=== PATIENT | male | born 1940 | race Caucasian/White ===

== ENCOUNTER 2016-12-15 08:32 | Day surgery (SDC) | payer MEDICARE, OTHER ==
[~2016-12-15] VITALS: Ht 182.9 cm; Wt 81.0 kg
[~2016-12-15 08:32] MED LIST: AMOXICILLIN500 M PO; BABY ASPIRIN81 MG PO; BAL B-501 EACH PO; BETAPACE80 M1 PO; BETAPACE80 M2 PO; CALCIUM 600 +1 EAC5 PO; CALCIUM CITRATE1 TA PO; COUMADIN5 M2 PO; COUMADIN5 MG PO; LAMICTAL200 M2 PO; LAMICTAL200 MG PO; LEVOFLOXACIN500 M1 PO; LEVOTHYROXINE100 MC1 PO; LISINOPRIL2.5 MG PO; MIRTAZAPINE7.5 M1 PO; MULTIVITAMIN1 TAB PO; OMEPRAZOLE40 MG PO; PREDNISOLONE AC15 ML LEFT EYE; PREDNISOLONE AC15 ML RIGHT EYE; PRINIVIL5 M1 PO; REMERON15 M1 PO; SYNTHROID100 MCG PO; VITAMIN D2000 UNI1 PO; VITAMIN D35000 UNI3 PO; VITAMIN D50000 UNIT PO; ZOFRAN ODT4 MG/UDTAB PO; ZOLOFT50 MG PO; [UNRECOGNIZED DRUG - OTHER] PO
[2016-12-15 10:05] LABS: INR 1.1 INR (0.9-1.1); PROTHROMBIN TIME 12.8 SECONDS (9.0-13.6)
[2016-12-17] MEDS ORDERED: NORCO 5-325 TA1 EACH PO (00:01)
== END 2016-12-15 16:25 ==
LOC: SRG 08:32 → SHSC 08:32 → ORW 11:38 → PACU 12:12 → SHSC 13:05 → SRG 16:25
PROVIDERS: Anesthesiology
PROC: 0YU54JZ Supplement Right Inguinal Region with Synthetic Substitute, Percutaneous Endoscopic Approach (ICD-10-PCS; principal; 2016-12-15)
DX: K40.90 Unilateral inguinal hernia, without obstruction or gangrene, not specified as recurrent (principal); E03.9 Hypothyroidism, unspecified; F32.9 Major depressive disorder, single episode, unspecified; I48.91 Unspecified atrial fibrillation; Z88.8 Allergy status to other drugs, medicaments and biological substances; Z90.49 Acquired absence of other specified parts of digestive tract; Z79.899 Other long term (current) drug therapy; Z79.01 Long term (current) use of anticoagulants; Z95.0 Presence of cardiac pacemaker; Z98.890 Other specified postprocedural states
CPT/HCPCS: C1781; J0690; J3010

== ENCOUNTER 2016-12-17 23:46 | Observation (INO) | payer MEDICARE, OTHER ==
[~2016-12-17] VITALS: Ht 182.9 cm; Wt 81.3 kg
[~2016-12-17 23:46] MED LIST changes: +NORCO 5-325 TA1 EACH PO
[2016-12-18 01:18] LABS: BASO % 0.4 % (0-2); BASO ABSOLUTE COUNT 0.1 tho/cmm (0.0-0.2); EOS % 3.2 % (0-7); EOSINOPHIL ABSOLUTE COUNT 0.4 tho/cmm (0.0-0.7); HCT-HEMATOCRIT 39.6 % (36.0-53.5); HGB-HEMOGLOBIN 13.4 gm/dl (13.5-17.0); IMMATURE GRANULOCYTES ABSOLUTE 0.03 tho/cmm (0-0.03); IMMATURE GRANULOCYTES PERCENT 0.2 % (0-0.3); LYMPH ABSOLUTE COUNT 2.3 tho/cmm (0.8-4.5); MCH (MEAN CORPUSCULAR HGB) 29.6 pg (28.0-32.0); MCHC MEAN CORPUSCULAR HGB CONC 33.8 % (32.0-36.0); MCV (MEAN CELL VOLUME) 87.4 fl (82.0-96.0); MEAN PLATELET VOLUME 9.5 cmc (9.4-12.4); MONO % 13.3 % (0-12); MONOCYTE ABSOLUTE COUNT 1.6 tho/cmm (0.0-1.2); NEUTROPHIL ABSOLUTE COUNT 7.8 tho/cmm (1.6-8.0); NEUTROPHIL-AUTOMATED 7.8 tho/cmm (1.6-8.0); NEUTROPHILS % 63.9 % (40-80); PLATELET COUNT 288 tho/cmm (150-450); RED BLOOD COUNT 4.53 mil/cmm (4.40-5.70); RED CELL DISTRIBUTION WIDTH 14.5 % (12.4-16.4); WHITE BLOOD COUNT 12.1 tho/cmm (4.0-10.0)
[2016-12-18 01:23] LABS: INR 1.1 INR (0.9-1.1); PROTHROMBIN TIME 13.5 SECONDS (9.0-13.6)
[2016-12-18 01:33] LABS: ALB/GLOB RATIO 0.9 (0.8-2.0); ALBUMIN 3.1 g/dl (3.5-5.0); ALKALINE PHOSPHATASE 64 U/L (33-138); ALT/SGPT 20 U/L (12-78); AMYLASE 63 U/L (20-90); ANION GAP 11 mmol/L (0-20); AST/SGOT 19 U/L (10-40); BILIRUBIN,TOTAL 0.6 mg/dl (0.0-1.5); BLOOD UREA NITROGEN 39 mg/dl (6-24); CALCIUM 8.8 mg/dl (8.5-10.5); CARBON DIOXIDE-VENOUS 26 mmol/L (22-32); CHLORIDE 105 mmol/l (96-110); CREATININE 4.82 mg/dl (0.60-1.30); GLUCOSE 94 mg/dL (70-110); LIPASE 127 U/L (73-393); POTASSIUM 3.9 mmol/L (3.7-5.1); SODIUM 138 mmol/L (135-145); eGFR VALUE FOR BLACK 13 mL/Min
[2016-12-18 10:09] LABS: ANION GAP 8 mmol/L (0-20); BLOOD UREA NITROGEN 28 mg/dl (6-24); CALCIUM 8.8 mg/dl (8.5-10.5); CARBON DIOXIDE-VENOUS 31 mmol/L (22-32); CHLORIDE 108 mmol/l (96-110); GLUCOSE 106 mg/dL (70-110); POTASSIUM 3.8 mmol/L (3.7-5.1); SODIUM 143 mmol/L (135-145); eGFR VALUE FOR BLACK 28 mL/Min
[2016-12-18 10:12] LABS: CREATININE 2.44 mg/dl (0.60-1.30)
[2016-12-18 10:56] LABS: URINE SODIUM-RANDOM 80 mmol/L (20-110)
--- NOTE | 2016-12-18 15:13 | NUR ---
VIRTUAL CARE NOTE: PT AWAKE, RESTING IN BED, STATES HE IS FEELING BETTER TODAY. PLATA IN PLACE DRAINING CLEAR YELLOW URINE. PT STATES HE DID HAVE LARGE SOFT BM TODAY. CHART REVIEWED. PT DENIES QUESTIONS/CONCERNS AT THIS TIME. VN WILL CONTINUE TO MONITOR ELECTRONIC RECORD AND FOLLOW W/ PT.
--- NOTE | 2016-12-18 23:41 | NUR ---
VIRTUAL CARE NOTE: ASSESSMENT DEFERRED. PT. SLEEPING.
[2016-12-19 05:41] LABS: URINE BILIRUBIN NEGATIVE (NEG); URINE BLOOD MODERATE (NEG); URINE GLUCOSE (UA) NEGATIVE (NEG); URINE KETONE NEGATIVE (NEG); URINE LEUKOCYTE ESTERASE NEGATIVE (NEG); URINE NITRITE NEGATIVE (NEG); URINE PH 6.5 (5.0-8.0); URINE PROTEIN SMALL (NEG)
[2016-12-19 05:42] LABS: URINE COLOR YELLOW
[2016-12-19 05:43] LABS: URINE APPEARANCE CLEAR
[2016-12-19 05:48] LABS: URINE EPITHELIAL CELLS 0 /[HPF] (0-10); URINE RBC 0-3 /[HPF] (0-5); URINE WBC 0-2 /[HPF] (0-5)
[2016-12-19 06:00] LABS: INR 1.2 INR (0.9-1.1); PROTHROMBIN TIME 14.6 SECONDS (9.0-13.6)
[2016-12-19 06:08] LABS: ANION GAP 8 mmol/L (0-20); BLOOD UREA NITROGEN 22 mg/dl (6-24); CALCIUM 8.7 mg/dl (8.5-10.5); CARBON DIOXIDE-VENOUS 28 mmol/L (22-32); CHLORIDE 108 mmol/l (96-110); GLUCOSE 94 mg/dL (70-110); MAGNESIUM 2.1 mg/dl (1.8-2.6); PHOSPHOROUS 2.5 mg/dl (2.5-4.9); SODIUM 140 mmol/L (135-145); eGFR VALUE FOR BLACK 74 mL/Min
[2016-12-19 06:17] LABS: CREATININE 1.11 mg/dl (0.60-1.30)
[2016-12-19] MEDS ORDERED: MIRALAX17 G2 PO (11:30)
[2016-12-19] MEDS ORDERED: FLOMAX0.4 M1 PO (11:32)
--- NOTE | 2016-12-19 13:07 | NUR ---
VN DISCHARGE TEACHING-TAUGHT PATIENT DISMISSAL INFO AND REVIEWED APPTS, PLATA CARES, AND MEDICATIONS. PATIENT AND SPOUSE WERE ABLE TO SUCCESSFULLY COMPLETE TEACHBACK.
== END 2016-12-19 13:55 ==
LOC: EDMED 23:46 → 5WD 12-18 03:23 → EMR2 12-18 03:23 → 5WD 12-18 04:14
PROVIDERS: Emergency Medicine; Internal Medicine; Physician Assistant; Urology; ADMIT Internal Medicine
PROC: 4A0D7LZ Measurement of Urinary Volume, Via Natural or Artificial Opening (ICD-10-PCS; principal; 2016-12-17)
DX: R33.9 Retention of urine, unspecified (principal); N17.9 Acute kidney failure, unspecified; K59.00 Constipation, unspecified; I48.91 Unspecified atrial fibrillation; I25.10 Atherosclerotic heart disease of native coronary artery without angina pectoris; F32.9 Major depressive disorder, single episode, unspecified; E03.9 Hypothyroidism, unspecified; E55.9 Vitamin D deficiency, unspecified; Z79.01 Long term (current) use of anticoagulants; Z79.899 Other long term (current) drug therapy; Z88.8 Allergy status to other drugs, medicaments and biological substances
CPT/HCPCS: G0378; G8978-GP-CJ; G8979-GP-CH; G8980-GP-CJ